=== PATIENT | male | born 1955 | race Caucasian/White ===

== ENCOUNTER → 2020-12-07 08:56 | Outpatient (CLI) | payer MEDICARE, OTHER, SELFPAY ==
--- NOTE | ~2020-12-07 | MR_ITS ---
EXAMINATION: MR knee LT wo con DATE: 12/07/2020 09:56 INDICATION: Generalized left knee pain and giving out TECHNIQUE: Magnetic resonance imaging (MRI) of the left knee was performed without intravenous contra st. Sequences included coronal PD-weighted FSE, coronal PD-weighted FS FSE, sagittal T2-weighted FSE , sagittal PD-weighted FS FSE and axial PD weighted fat saturated FSE. COMPARISON: None. FINDINGS: Medial compartment: Longitudinal horizontal tear extending to the intra-articular surface near the free edge of the poste rior horn and hand posterior body of the medial meniscus. Partial-thickness chondral ulceration with chondral surface regularity without degenerative subchondral changes at the central aspect of the med ial tibial plateau. Partial thickness chondral fissuring also without degenerative subchondral change s at the anterior weightbearing medial femoral condyle. Mild partial thickness cartilage loss along t he margins of the medial tibial plateau. There is subarticular edema at the medial side of the medial tibial plateau surrounding a region of decreased signal in the subarticular marrow which has a linea r configuration paralleling the articular cortex on the sagittal nonfat saturated images suspicious f or a subarticular stress/insufficiency fracture. Lateral compartment: Lateral meniscus is normal. Partial-thickness chondral fissuring without degenerative subchondral chava nges at the anterior weightbearing lateral femoral condyle. Patellofemoral compartment: Deep chondral ulceration with small central osteophytes and minimal subarticular edema at the cephala d half of the patellar apical ridge and medial facet. Mild partial thickness chondral fissuring at th e medial side of the lateral facet. Deep chondral fissure involving greater than 50% the cartilage th ickness but without degenerative subchondral changes at the medial side of the lateral facet. A sever e partial thickness fissuring also without degenerative subchondral changes at the trochlear groove a nd medial facet Ligaments and tendons: Anterior and posterior cruciate ligaments are normal. The medial collateral ligament and fibular sim ateral ligament complex are normal. Mild distal quadriceps tendinopathy with large enthesophyte at it s patellar insertion. Mild tendinopathy at the patellar and tibial insertions of the patellar tendon with additional enthesophytes at the tibial tuberosity insertion of the patellar tendon. The visualiz ed medial and lateral hamstring tendons as well as the iliotibial band are normal. Fluid: Small left knee joint effusion with mild synovitis at the suprapatellar pouch. There are also of supr apatellar and medial plical bands, the latter which does not cross the medial rim of the medial troch jennifer. No intra-articular loose osteochondral bodies identified. There are couple small extra-articular loose bodies surrounded by small amount of fluid within a deep component of a small Parry's cyst. Osseous/other: Normal marrow signal aside from the previously noted subarticular edema at the patella and medial tib ial plateau. No pathologic marrow replacing process. IMPRESSION: 1. Longitudinal horizontal tear of the body and posterior horn of the medial meniscus. 2. Prominent marrow edema surrounding a subtle subarticular linear low signal suspicious for a small intramedullary stress/insufficiency fracture line. 3. Mild medial and patellofemoral predominant tricompartmental osteoarthritis with regions of high-gr sudha patellar chondromalacia. 4. Mild tendinopathy/enthesopathy at the osseous attachments of the patellar and distal quadriceps te ndons. 5. Likely reactive small left knee joint effusion and small Parry's cyst. Reviewed, dictated and finalized at location A. Electronically signed by Manny Barnes M.D. on
== END ==
PROVIDERS: PCP Family Medicine; Visit Provider Orthopaedic Surgery
DX: S83.242A Other tear of medial meniscus, current injury, left knee, initial encounter (principal); M17.12 Unilateral primary osteoarthritis, left knee; M71.22 Synovial cyst of popliteal space [Baker], left knee
CPT/HCPCS: 73721

== ENCOUNTER → 2020-12-07 08:57 | Outpatient (CLI) | payer MEDICARE, OTHER, SELFPAY ==
--- NOTE | ~2020-12-07 | XR_ITS ---
EXAMINATION: XR chest 2V 12/07/2020 10:01 INDICATION: Prior asbestos exposure. PROCEDURE: 2 view chest COMPARISON: No prior studies for comparison. FINDINGS: The lungs are clear. The cardiomediastinal silhouette is within normal limits. There are no pleural effusions. There is no pneumothorax suspected. IMPRESSION: 1: NO ACUTE CARDIOPULMONARY DISEASE. Reviewed, dictated and finalized at location B.
--- NOTE | ~2020-12-07 | US_ITS ---
EXAMINATION: US aorta [facility] scrn DATE: 12/07/2020 09:41 CDT INDICATION: Screening for abdominal aortic aneurysm TECHNIQUE: Grayscale, color Doppler, and pulsed Doppler images of the aorta and common iliac arteries were obtained. COMPARISON: None. FINDINGS: The proximal aorta measures 2.5 cm greatest sagittal dimension. The mid aorta measures 2.5 cm greates t sagittal dimension. The distal aorta measures 2.2 cm greatest sagittal dimension. The right common internal iliac artery measures 1.4 cm. The left common iliac artery measures 1.1 cm. IMPRESSION: 1. Normal caliber aorta without evidence for aneurysm. Reviewed, dictated and finalized at location B.
== END ==
PROVIDERS: PCP Family Medicine; Visit Provider Family Medicine
DX: Z13.6 Encounter for screening for cardiovascular disorders (principal); Z77.090 Contact with and (suspected) exposure to asbestos
CPT/HCPCS: 71046; 76706

== ENCOUNTER 2020-12-20 08:26 | Outpatient (CLI) | payer MEDICARE, OTHER, SELFPAY ==
--- NOTE | 2020-12-20 08:30 | ECG_ITS ---
Measurements Intervals [place] Rate: 73 P: 51 MA: 152 QRS: 58 QRSD: 95 T: 39 QT: 380 QTc: 421 Interpretive Statements SINUS RHYTHM BORDERLINE R WAVE PROGRESSION, ANTERIOR LEADS MINIMAL Q WAVES- INFERIOR LEADS BASELINE ARTIFACT- I, II, AVR, AVL, AVF BORDERLINE ECG Electronically Signed On 12-20-2020 9:15:37 CDT by Geovanni Contreras D.O.
== END 2020-12-20 08:27 | disposition home or self-care (01) ==
LOC: ANHSURGERY 08:31
PROVIDERS: PCP Family Medicine; Visit Provider Orthopaedic Surgery
DX: Z01.810 Encounter for preprocedural cardiovascular examination (principal); I10 Essential (primary) hypertension
CPT/HCPCS: 93005

== ENCOUNTER → 2020-12-21 01:37 | Outpatient (CLI) | payer MEDICARE, OTHER, SELFPAY ==
[2020-12-21 18:55] LABS: SARS-CoV-2 RNA PCR Negative
== END ==
PROVIDERS: PCP Family Medicine; Visit Provider Orthopaedic Surgery
DX: Z01.812 Encounter for preprocedural laboratory examination (principal); Z20.822 Contact with and (suspected) exposure to COVID-19
CPT/HCPCS: C9803; U0003; U0005

== ENCOUNTER 2020-12-24 05:58 | Day surgery (SDC) | payer MEDICARE, OTHER, SELFPAY ==
[2020-12-16 10:37] VITALS: BMI 34.8
--- NOTE | 2020-12-23 12:44 | P.PNAN_ITS ---
Anes - Initial Pre Proc Eval Procedure: Operation Date: 12/24/20 07:30 Proposed Procedures p Arthroscopic Left Partial Medial Meniscectomy - Bola Chaudhari MD Date/Time: 12/23/20 12:44 Surgeon: Bola Chaudhari MD Pre Op Diagnosis: left medial meniscus tear Patient Data Age: 65 Gender: M Height: 1.88 m Weight: 123 kg Allergies Allergy/AdvReac Type Severity Reaction Status Date / Time adhesive Allergy Mild Rash Verified 12/16/20 10:28 Home Medications Medication Instructions Recorded Confirmed Type buspirone 15 mg tablet 15 mg PO QAM 08/01/19 12/16/20 History etodolac 500 mg tablet 500 mg PO QAM 08/01/19 12/16/20 History levothyroxine 50 mcg tablet 50 mcg PO HS 08/01/19 12/16/20 History losartan 25 mg tablet 25 mg PO QAM 08/01/19 12/16/20 History lovastatin 40 mg tablet 40 mg PO HS 08/01/19 12/16/20 History metformin 500 mg tablet,extended 500 mg PO HS 08/01/19 12/16/20 History release 24 hr terazosin 10 mg capsule 10 mg PO HS 08/01/19 12/16/20 History cyclobenzaprine 10 mg tablet 10 mg PO TID PRN #30 tablet 12/15/20 12/16/20 Rx aspirin [Aspir-81] 81 mg PO DAILY 12/16/20 12/16/20 History cholecalciferol (vitamin D3) 125 mcg PO DAILY 12/16/20 12/16/20 History Patient hx anesthesia problems: none Family hx anesthesia problems: none [facility] Past Medical History Medical History (Updated 12/23/20 @ 12:45 by Luis Eduardo Guerrero DO) Anxiety Bilateral primary osteoarthritis of knee BPH (benign prostatic hyperplasia) Diabetes Hyperlipidemia Hypertension Hypothyroidism PONV (postoperative nausea and vomiting) Surgical History Surgical History (Updated 12/23/20 @ 12:45 by Luis Eduardo Guerrero DO) History of back surgery (~1978) History of fusion of cervical spine History of neck surgery (~2003) Family History Family History Father Family history of congenital heart disease Mother Lung disease Social History Social History Smoking packs per day: 1 Smoking cigarettes per day: 20.0 Years smoked: 20 Smoking pack-years: 20.00 Smoking status: Former smoker Tobacco type: cigarettes Smoking end date: 02/11/00 Alcohol intake: current Drinks per week: 17 Alcohol use details: 12 BEERS AND 1 BOTTLE OF WINE/WEEK Substance use: never Living arrangements: with family Additional living arrangements comments: Spiritual care concerns: No Anes - Eval Final PreProcedure Day of Procedure 12/23/20 12:44 Patient weight: obese Heart: regular rate and rhythm Lungs: clear to auscultation and normal air movement Airway: Mallampati scale class III Neurological: alert and oriented Last oral intake: >/= 8 hours ASA classification: III Emergent: no Anesthetic plan: proceed Anesthesia type and monitoring: general LMA and standard monitoring Informed Consent: The patient's anesthetic plan and its attendant risks and benefits were discussed with the patient/family/POA. Questions were solicited and answers provided to the satisfaction of the patient/family/POA.
[2020-12-24] VITALS (7 sets, daily range): BP systolic 94–145; BP diastolic 55–75; PULSE 68–82; RESP 16–18; TEMP 36.4–36.8; O2SAT 97–100
[2020-12-24] MEDS: ACETAMINOPHEN 500 MG TABLET 1000 MG PO (06:50)
[2020-12-24] MEDS: KETOROLAC 15 MG/ML VIAL (*BKC) IV PUSH (06:51)
[2020-12-24] MEDS: LACTATED RINGERS 1,000 ML 30 ML IV CONT (06:58)
[2020-12-24 07:07] LABS: Glucose Point of Care 161 (65-105)
--- NOTE | 2020-12-24 07:25 | WPDHPUPDATE1 ---
History and Physical Update Update Date/Time: 12/24/20 07:25 History and Physical has been reviewed, including an updated exam of the patient. There are NO changes in the patient's condition. Risks, benefits, and alternatives have been discussed and questions answered. Patient agrees to proceed with procedure.
[2020-12-24] MEDS: ceFAZolin 2 GM/D5W 50 ML 2 GM/50 ML BAG IVPB (07:29)
[2020-12-24] MEDS: BUPIVACAINE/EPINEPHRINE 0.5% 30 ML VIAL INFILTRATE (07:42)
--- NOTE | 2020-12-24 08:20 | PM.PROC ---
Procedure Note - Detailed Date of procedure: 12/24/20 Pre-op diagnosis: left medial meniscus tear Medial meniscus tear, left knee. Post-op diagnosis: same Procedure performed: Arthroscopic partial medial meniscectomy, left knee. Description of procedure: Extensive posterior horn horizontal cleavage tear. Moderate synovitis. Patella grade 2 and trochlea grade 3; chondromalacia. Grade 2 medial femur. Lateral compartment benign. ACL normal. Anesthesia: GETA Surgeon: Bola Chaudhari MD It Integration Architect: Diane Mendiola PA-C Estimated blood loss (mL): 5 Tourniquet time (min): 15 Complications: None Condition: stable Disposition: PACU Findings: Procedure Details: The patient was identified and the surgical site confirmed and signed in the preoperative holding area. Antibiotics were started per protocol. She was brought to the operative room and transferred to the OR table. A general anesthetic was administered. Supine position with the operative lower extremity position in the leg bowser after placement of a well padded tourniquet. The leg support was lowered and the contralateral limb was supported with a soft bolster. The knee was prepped and draped in the usual sterile fashion. A time-out was performed. The portal sites were marked and infiltrated with 0.5% Marcaine 20 mL. The limb was exsanguinated and the tourniquet inflated to 300 mL Hg. Standard inferolateral and inferomedial portals were established. Inflow was obtained with the saline pump. The camera was introduced. Diagnostic inspection of the joint was accomplished. The meniscus was debrided with the arthroscopic shaver and punches until stable. The arthroscopic instruments were removed. The tourniquet released and wounds closed with subcutaneous 3-0 Monocryl absorbable suture. Steri strips and a sterile dressing were applied. A light elastic wrap was placed. The patient was extubated and brought to the recovery room in stable condition.
[2020-12-24 09:00] LABS: Glucose Point of Care 158 (65-105)
== END 2020-12-24 10:04 | disposition home or self-care (01) ==
PROVIDERS: PCP Family Medicine; Visit Provider Orthopaedic Surgery
PROC: (CPT 29870; principal; 2020-12-24 07:30)
DX: S83.242A Other tear of medial meniscus, current injury, left knee, initial encounter (principal); X50.0XXA Overexertion from strenuous movement or load, initial encounter; X50.3XXA Overexertion from repetitive movements, initial encounter; M22.42 Chondromalacia patellae, left knee; M65.862 Other synovitis and tenosynovitis, left lower leg; I10 Essential (primary) hypertension; E78.5 Hyperlipidemia, unspecified; E11.9 Type 2 diabetes mellitus without complications; E03.9 Hypothyroidism, unspecified; N40.0 Benign prostatic hyperplasia without lower urinary tract symptoms; F41.9 Anxiety disorder, unspecified; Z98.1 Arthrodesis status; Z87.891 Personal history of nicotine dependence; E66.9 Obesity, unspecified; Z68.34 Body mass index [BMI] 34.0-34.9, adult; Z79.84 Long term (current) use of oral hypoglycemic drugs; Z79.82 Long term (current) use of aspirin
CPT/HCPCS: 29881; 82948; A9270; J0690; J1100; J1885; J2250; J2405; J2704; J3010; J7120

== ENCOUNTER → 2022-04-06 14:22 | Outpatient (CLI) | payer MEDICARE, OTHER, SELFPAY ==
--- NOTE | ~2022-04-06 | CT_ITS ---
EXAMINATION: CT brain wo con DATE: 04/06/2022 14:34 INDICATION: Dizziness. Abnormal vision. TECHNIQUE: Computed tomography (CT) of the head was performed without intravenous contrast. The mA wa s adjusted according to patient size. Iterative reconstruction technique was employed. The dose-lengt h product was 674.51 mGy-cm. COMPARISON: None FINDINGS: There is no intracranial hemorrhage, acute infarction, or abnormal intracranial mass lesion . The ventricles are normal in size. There are no pathologically enlarged lymph nodes. There is mild mucosal thickening in the paranasal sinuses. The mastoid air cells are normal. There is cerumen in th e bilateral external auditory canals. IMPRESSION: 1. Normal brain. Reviewed, dictated and finalized at location A. IMPRESSION: 1. Normal brain.
== END ==
PROVIDERS: PCP Family Medicine; Visit Provider Family Medicine
DX: E11.40 Type 2 diabetes mellitus with diabetic neuropathy, unspecified (principal); E78.2 Mixed hyperlipidemia; I25.10 Atherosclerotic heart disease of native coronary artery without angina pectoris; E03.9 Hypothyroidism, unspecified; N18.32 Chronic kidney disease, stage 3b
CPT/HCPCS: 70450

== ENCOUNTER 2022-04-11 15:47 | Outpatient (CLI) | payer MEDICARE, OTHER, SELFPAY ==
--- NOTE | ~2022-04-11 | US_ITS ---
EXAMINATION: US carotid duplex BI DATE: 04/11/2022 17:15 INDICATION: Type 2 diabetes with diabetic neuropathy. Cerebral atherosclerosis. TECHNIQUE: Grayscale, color Doppler, and pulsed Doppler images of the cervical carotid arteries were obtained. The degree of vessel stenosis is placed in one of the following categories: normal, <50%, 5 0-69%, >=70% but less than near-occlusion, near-occlusion, or total occlusion. Note that percent sten osis relative to normal distal artery lumen diameter is indirectly measured from velocity measurement s as described by Ray, et al. Radiology 2003; 229:340-346. COMPARISON: None. FINDINGS: RIGHT: The right common carotid artery (CCA) peak systolic velocity (PSV) is 63 cm/s. The right internal car otid artery (ICA) PSV is 106 cm/s. The right ICA end-diastolic velocity (EDV) is 35 cm/s. The right I CA/CCA PSV ratio is 1.7. Grayscale and color Doppler images yield an estimate of <50% diameter reduct ion from plaque in the ICA. The external carotid artery (ECA) PSV is 111 cm/s. There is antegrade marichuy w in the right vertebral artery. LEFT: The left CCA PSV is 63 cm/s. The left ICA PSV is 95 cm/s. The left ICA EDV is 33 cm/s. The left ICA/C CA PSV ratio is 1.5. Grayscale and color Doppler images yield an estimate of <50% diameter reduction from plaque in the ICA. The ECA PSV is 94 cm/s. There is antegrade flow in the left vertebral artery. IMPRESSION: 1. <50% stenosis in the right internal carotid artery. 2. <50% stenosis in the left internal carotid artery. Reviewed, dictated and finalized at location A.
== END 2022-04-11 15:48 | disposition home or self-care (01) ==
PROVIDERS: PCP Family Medicine; Visit Provider Family Medicine
DX: E11.40 Type 2 diabetes mellitus with diabetic neuropathy, unspecified (principal); E78.2 Mixed hyperlipidemia; I25.10 Atherosclerotic heart disease of native coronary artery without angina pectoris; R41.3 Other amnesia; I65.23 Occlusion and stenosis of bilateral carotid arteries
CPT/HCPCS: 93880

== ENCOUNTER → 2022-12-08 12:17 | Outpatient (CLI) | payer MEDICARE, OTHER, SELFPAY ==
--- NOTE | ~2022-12-08 | MR_ITS ---
MRI of the right elbow Clinical history: Pain TECHNIQUE: Proton-density and proton-density fat-sat imaging was performed in the axial, coronal, and sagittal planes. FINDINGS: Ulnar collateral ligament is intact. There is thickening and increased signal of the radial collateral ligament. Lateral ulnar collateral ligament is intact. There is low to moderate grade par tial thickness tearing at the common extensor tendon origin at the lateral epicondyle of the humerus. Common flexor tendon origin and medial epicondyle are unremarkable. Bone marrow signals are unremarkable. There are 2 small loose bodies at the anterior aspect of the el bow, measuring 5 mm in diameter each (series 6 image 15).. No significant joint effusion. Biceps and brachialis tendons are intact. Triceps tendon is intact with enthesopathic change at its i nsertion. There is subcutaneous soft tissue edema over the olecranon and extending about the lateral aspect of the elbow. There is muscle edema involving the anconeus muscle belly. There is a small gang lion cyst at the volar aspect of the elbow just anterior to the coronoid process, measuring 1.3 cm in diameter (series 9 images 18-19). IMPRESSION: Moderate grade partial thickness tearing at the common extensor tendon origin at the lateral epicondy le, consistent with lateral epicondylitis. Loose bodies in the anterior aspect of the elbow joint measuring up to 5 mm in diameter each, as deta iled above. Increased signal and thickening of the radial collateral ligament could reflect sprain. Subcutaneous soft tissue edema in the olecranon extending to the radial aspect of the elbow, with add itional edematous change of the anconeus muscle belly. These findings could be reactive or posttrauma tic in nature. Correlate clinically for any possibility of infection. 1.3 cm ganglion cyst just anterior to the coronoid process, as detailed above. Reviewed, dictated and finalized at location . IMPRESSION: Moderate grade partial thickness tearing at the common extensor tendon origin a t the lateral epicondyle, consistent with lateral epicondylitis. Loose bodies in the anterior aspect of the elbow joint measuring up to 5 mm in diameter each, as detailed above. Increased signal and thickening of the radial collateral ligament could reflect sprain. Subcutaneous soft tissue edema in the olecranon extending to the radial aspect of the elbow, with additional edematous change of the anconeus muscle belly. Th aaron findings could be reactive or posttraumatic in nature. Correlate clinically for any possibility of infection. 1.3 cm ganglion cyst just anterior to the coronoid process, as detailed above.
== END ==
PROVIDERS: PCP Family Medicine; Visit Provider Orthopaedic Surgery
DX: M25.521 Pain in right elbow (principal); M24.021 Loose body in right elbow; M67.421 Ganglion, right elbow
CPT/HCPCS: 73221

== ENCOUNTER 2024-05-30 00:31 | Day surgery (SDC) | payer MEDICARE, OTHER, SELFPAY ==
[2024-05-21 09:18] VITALS: BMI 37.8
--- NOTE | 2024-05-28 12:21 | PC.NURSE ---
Spoke with patient regarding medication Pradaxa. Pt. verbalizes understanding that the last dose of Pradaxa is to be taken on 05/27/2024 and the Endoscopist will instruct them when to restart after the procedure.
[2024-05-30 09:36] VITALS: BP 150/68; PULSE 73; RESP 16; TEMP 36.9; O2SAT 98
[2024-05-30] MEDS: LACTATED RINGERS 1,000 ML 150 ML IV CONT (09:38)
--- NOTE | 2024-05-30 09:44 | WPDANESEPPF ---
Anes - Initial Pre Proc Eval Procedure: Operation Date: 05/30/24 11:00 Proposed Procedures p Colonoscopy - Hank Toney MD Date/Time: 05/30/24 09:44 Surgeon: Hank Toney MD Pre Op Diagnosis: Positive Cologuard Patient Data Age: 68 Gender: M Height: 1.88 m Weight: 129 kg Last Vital Signs Temp 36.9 C 05/30/24 09:36 Pulse 73 05/30/24 09:36 Resp 16 05/30/24 09:36 BP 150/68 H 05/30/24 09:36 Pulse Ox 98 05/30/24 09:36 O2 Del Method Room Air 05/30/24 09:36 Allergies Allergy/AdvReac Type Severity Reaction Status Date / Time donepezil Allergy Intermediate Hallucinati Verified 05/30/24 09:34 ng Latex, Natural Rubber Allergy Intermediate Rash Verified 05/30/24 09:34 adhesive Allergy Mild Rash Verified 05/30/24 09:34 Home Medications Medication Instructions Recorded Confirmed Type buspirone 15 mg tablet 15 mg PO QAM 08/01/19 05/30/24 History losartan 25 mg tablet 25 mg PO QAM 08/01/19 05/30/24 History metformin 500 mg tablet,extended 1,500 mg PO QAM 08/01/19 05/30/24 History release 24 hr cholecalciferol (vitamin D3) 125 125 mcg PO DAILY 12/16/20 05/30/24 History mcg (5,000 unit) capsule dabigatran etexilate 150 mg capsule 150 mg PO BID 12/13/23 05/30/24 History pioglitazone 30 mg tablet 30 mg PO DAILY 12/13/23 05/30/24 History rosuvastatin 20 mg tablet 20 mg PO DAILY 12/13/23 05/30/24 History terazosin 10 mg capsule 10 mg PO BID 12/13/23 05/30/24 History acetaminophen 500 mg tablet 500 mg PO Q6H PRN Pain 05/21/24 05/30/24 History amiodarone 200 mg tablet 200 mg PO DAILY 05/21/24 05/30/24 History etodolac 500 mg tablet,extended 500 mg PO DAILY PRN Pain 05/21/24 05/30/24 History release 24 hr levothyroxine 100 mcg tablet 100 mcg PO DAILY 05/21/24 05/30/24 History metoprolol tartrate 25 mg tablet 25 mg PO DAILY 05/21/24 05/30/24 History Patient hx anesthesia problems: none Family hx anesthesia problems: none Results Review: All pre-operative results and documents have been reviewed as part of the pre-operative evaluation. [facility] Past Medical History Medical History Anxiety Bilateral primary osteoarthritis of knee BPH (benign prostatic hyperplasia) Diabetes Hyperlipidemia Hypertension Hypothyroidism PONV (postoperative nausea and vomiting) Surgical History Surgical History History of back surgery (~1978) History of fusion of cervical spine History of neck surgery (~2003) Family History Family History Father Family history of congenital heart disease Mother Lung disease Social History Social History Smoking packs per day: 1 Smoking cigarettes per day: 20.0 Years smoked: 20 Smoking pack-years: 20.00 Smoking status: Former smoker Tobacco type: cigarettes Smoking end date: 02/11/00 Alcohol intake: current Drinks per week: 14 Alcohol use details: BEERS OR GLASSES WINE Substance use: never Substance use type: does not use Lack of Transportation: No Lack of Food: Never True Current Housing: I Have Housing Concerned About Future Housing: No Difficulty Paying Gas/Electric Bills: No Difficulty Paying for Meds: No Currently Unemployed: No Education: Trade/Vocational Certificate Difficulty w/ Childcare or Family Care: No Living arrangements: with family Additional living arrangements comments: Spiritual care concerns: No Anes - Eval Final PreProcedure Day of Procedure 05/30/24 09:44 Patient weight: obese Heart: regular rate and rhythm Lungs: clear to auscultation Airway: Mallampati scale class II Neurological: alert and oriented Last oral intake: >/= 8 hours ASA classification: III Emergent: no Anesthetic plan: proceed Anesthesia type and monitoring: genera
[2024-05-30 09:48] LABS: Glucose Point of Care 139 mg/dl (65-105)
--- NOTE | 2024-05-30 09:51 | PM.HPGS ---
History of Present Illness History of Present Illness Consent: Risks, benefits, and alternatives have been discussed and questions answered. Patient agrees to proceed with procedure. Chief complaint: Positive Cologuard Narrative: Edin Bennett is a 68 year old male with + cologuard, had colonoscopy more than 10 years ago Review of Systems Review of Systems: All systems reviewed & are unremarkable except as noted in HPI and below PMFSH Past Medical History Medical History (Updated 05/30/24 @ 09:53 by Hank Toney MD) Anxiety Bilateral primary osteoarthritis of knee BPH (benign prostatic hyperplasia) Diabetes Hyperlipidemia Hypertension Hypothyroidism PONV (postoperative nausea and vomiting) Positive colorectal cancer screening using Cologuard test Surgical History Surgical History History of back surgery (~1978) History of fusion of cervical spine History of neck surgery (~2003) Family History Family History Father Family history of congenital heart disease Mother Lung disease Social History Social History Smoking packs per day: 1 Smoking cigarettes per day: 20.0 Years smoked: 20 Smoking pack-years: 20.00 Smoking status: Former smoker Tobacco type: cigarettes Smoking end date: 02/11/00 Alcohol intake: current Drinks per week: 14 Alcohol use details: BEERS OR GLASSES WINE Substance use: never Substance use type: does not use Lack of Transportation: No Lack of Food: Never True Current Housing: I Have Housing Concerned About Future Housing: No Difficulty Paying Gas/Electric Bills: No Difficulty Paying for Meds: No Currently Unemployed: No Education: Trade/Vocational Certificate Difficulty w/ Childcare or Family Care: No Living arrangements: with family Additional living arrangements comments: Spiritual care concerns: No Meds Home Medications and Allergies Home Medications Medication Instructions Recorded Confirmed Type buspirone 15 mg tablet 15 mg PO QAM 08/01/19 05/30/24 History losartan 25 mg tablet 25 mg PO QAM 08/01/19 05/30/24 History metformin 500 mg tablet,extended 1,500 mg PO QAM 08/01/19 05/30/24 History release 24 hr cholecalciferol (vitamin D3) 125 125 mcg PO DAILY 12/16/20 05/30/24 History mcg (5,000 unit) capsule dabigatran etexilate 150 mg capsule 150 mg PO BID 12/13/23 05/30/24 History pioglitazone 30 mg tablet 30 mg PO DAILY 12/13/23 05/30/24 History rosuvastatin 20 mg tablet 20 mg PO DAILY 12/13/23 05/30/24 History terazosin 10 mg capsule 10 mg PO BID 12/13/23 05/30/24 History acetaminophen 500 mg tablet 500 mg PO Q6H PRN Pain 05/21/24 05/30/24 History amiodarone 200 mg tablet 200 mg PO DAILY 05/21/24 05/30/24 History etodolac 500 mg tablet,extended 500 mg PO DAILY PRN Pain 05/21/24 05/30/24 History release 24 hr levothyroxine 100 mcg tablet 100 mcg PO DAILY 05/21/24 05/30/24 History metoprolol tartrate 25 mg tablet 25 mg PO DAILY 05/21/24 05/30/24 History Allergies Allergy/AdvReac Type Severity Reaction Status Date / Time donepezil Allergy Intermediate Hallucinati Verified 05/30/24 09:34 ng Latex, Natural Rubber Allergy Intermediate Rash Verified 05/30/24 09:34 adhesive Allergy Mild Rash Verified 05/30/24 09:34 Vital Signs Vital Signs - 24 hr 05/30/24 09:36 Temperature 98.4 F Pulse Rate 73 Respiratory Rate 16 Blood Pressure 150/68 H Pulse Oximetry 98 Oxygen Delivery Room Air Exam Const: General: comfortable and no acute distress HENMT: Face/Nose/Sinus: Normal nares present Eyes: General: appearance normal, both eyes and all related structures Neck: Neck: no JVD Resp: Auscultation: clear to auscultation bilaterally Cardio: Rate: regular rate Rhythm: regular rhythm GI: Inspection: non-distended GI Pa
[2024-05-30 10:14] VITALS: BP 130/76; PULSE 61; RESP 15; O2SAT 98
[2024-05-30 10:24] VITALS: BP 130/70; PULSE 58; RESP 19; O2SAT 98
[2024-05-30 10:34] VITALS: BP 130/82; PULSE 61; RESP 18; O2SAT 99
== END 2024-05-30 10:45 | disposition home or self-care (01) ==
PROVIDERS: PCP Family Medicine Sports Medicine; Visit Provider Internal Medicine Gastroenterology
PROC: 0DJD8ZZ Inspection of Lower Intestinal Tract, Via Natural or Artificial Opening Endoscopic (ICD-10-PCS; CPT 45378; principal; 2024-05-30 11:00)
DX: K57.30 Diverticulosis of large intestine without perforation or abscess without bleeding (principal); E78.5 Hyperlipidemia, unspecified; I10 Essential (primary) hypertension; E03.9 Hypothyroidism, unspecified; E11.9 Type 2 diabetes mellitus without complications; F41.9 Anxiety disorder, unspecified; M17.0 Bilateral primary osteoarthritis of knee; N40.0 Benign prostatic hyperplasia without lower urinary tract symptoms; E66.9 Obesity, unspecified; Z68.36 Body mass index [BMI] 36.0-36.9, adult; Z79.84 Long term (current) use of oral hypoglycemic drugs; Z98.890 Other specified postprocedural states; Z98.1 Arthrodesis status; Z87.891 Personal history of nicotine dependence; Z82.49 Family history of ischemic heart disease and other diseases of the circulatory system
CPT/HCPCS: 45378; 82948; J2003; J2704; J7120